=== PATIENT | female | born 1950 | race Caucasian/White ===

== ENCOUNTER 2020-02-23 08:08 | Emergency (ER) | payer MEDICARE, BC ==
[2020-02-23] MEDS ORDERED: IPRATROPIUM/ALBUTEROL 3 ML VIAL NEB ONE ×2 (08:31→09:35)
--- NOTE | 2020-02-23 08:37 | ED.PDOC ---
History of Present Illness - General Time Seen by Provider: 02/23/20 08:15 Source: patient - History of Present Illness Initial Comments: 69 yo female with PMH of HTN, CHF, CKD, hx of CVA who presents with cc of not feeling well. Pt is poor historian. States not feeling well for several days, worsened yesterday. Complains of numerous symptoms but mostly of chest heaviness and dyspnea. States chest heaviness in center of chest, no radiation, worsening for several days, waxing & waning, currently 7/10 severity, worse with activity, better at rest, no meds taken for relief. Dyspnea is constant, moderate, slightly worse than baseline. Also reports some intermittent cough productive at times for phlegm. States fever with Tmax 100 F last night. Reports additionally: body aches, sore throat, leg swelling, and slight R sided facial droop. Reports hx of 2 strokes in the past - has had R sided facial droop with prior strokes. Reports went to sleep w/o any stroke-like sx's last night at 9 pm and woke up at 1 am with new onset sx's. Also reporting some slight numbness on the Right side compared to the left which is new. Denies any abd pain, n/v/d, urinary sx's. Just moved here from [place]. PCP is Dr. Khan but has only had tele-visits with him. Allergies/Adverse Reactions: Allergies Sulfa Antibiotics Allergy (Verified 02/23/20 08:47) Torsemide Allergy (Verified 02/23/20 09:08) Home Medications: Ambulatory Orders Albuterol Sulfate Nebs [Proventil Nebs] 2.5 mg INH Q4H PRN 02/23/20 Alogliptin Benzoate [Alogliptin] 12.5 mg PO DAILY 02/23/20 Amoxicillin 500 mg PO BID 10 Days #20 cap 02/23/20 Aspirin [Aspirin Childrens] 81 mg PO DAILY 02/23/20 Atorvastatin Calcium [Lipitor] 10 mg PO BEDTIME 02/23/20 Bupropion HCl [Wellbutrin Xl] 150 mg PO DAILY 02/23/20 Calcium Carbonate (Antacid) [Calcium Carbonate] 500 mg PO BID 02/23/20 Carboxymethylcellulose 0.5% [Refresh Plus] 0.4 ml BOTH_EYES QID 02/23/20 Carvedilol 6.25 mg PO BID 02/23/20 Cetirizine HCl [ZyrTEC] 10 mg PO DAILY 02/23/20 Ergocalciferol 50,000 unit PO WKLY 02/23/20 Fluconazole 200 mg PO DAILY 02/23/20 Flunisolide (Nasal) [Flunisolide] 0.025 % NA DAILY PRN 02/23/20 Furosemide 60 mg PO DAILY 02/23/20 Guaifenesin-Codeine [Codeine/Guaifenesin 100-10 mg/5Ml] 1 isela PO Q6H PRN 02/23/20 Ipratropium [place] Hfa [Atrovent Hfa] 17 mcg IN Q6H PRN 02/23/20 Losartan Potassium 75 mg PO DAILY 02/23/20 Mometasone Furoate-Formoterol [Dulera 100-5 Mcg/Act] 2 aer IN BID 02/23/20 Montelukast [Singulair] 10 mg PO DAILY 02/23/20 Potassium Chloride [K-Tab] 10 meq PO DAILY 02/23/20 Pramipexole Dihydrochloride [Mirapex] 0.5 mg PO BID 02/23/20 Prednisone 60 mg PO DAILY 5 Days #15 tab 02/23/20 raNITIdine HCL [Zantac] 150 mg PO BID 02/23/20 Review of Systems - Review of Systems Review of Systems: 02/23/20 08:37 as per HPI All other Systems: Reviewed and Negative Family Medical History - Family History Mother Family History: Unknown Living Status: Physical Exam - Physical Exam General Appearance: Alert, No apparent distress Eyes, Ears, Nose, Throat Exam: PERRL/EOMI, normal ENT inspection, pharynx normal Neck: non-tender, full range of motion, supple, normal inspection Respiratory: no accessory muscle use, wheezing - expiratory wheezing throughout with diminished breath sounds throughout, no rales or rhonchi noted Cardiovascular/Chest: normal peripheral pulses, regular rate, rhythm, no murmur Gastrointestinal/Abdominal: non tender, soft, no organomegaly Extremity: normal range of motion, non-tender, no calf tenderness, normal capillary refill, pedal edema - trace BL LE edema Neurologic: alert, normal mood/affect, oriented x 3, 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 No dysarthria noted Skin Exam: normal color, warm/dry Progress - Progress Progress: 02/23/20 08:39 Dyspnea, chest heaviness, stroke-like sx's -consider: COPD exacerbation, CHF, ACS, CVA, PNA, flu, strep, COVID, UTI, other -obtain: cardiac work-up, CT head, labs, UA, flu, strep -place PIV, Duonebs, consider IV steroids if no evidence of pulmonary edema -For stroke-like symptoms, initial NIH score of 4 (facial asymmetry +1, L leg motor drift +2, sensory loss R side +1). As time last known to be well is 9 pm (11 hours ago) and minor symptoms, pt is not a candidate for tPA. Will monitor closely in ED and re-examine. Consider neurology consultation. Pt has not had her morning meds today. Consider aspirin in ED if CT head w/o evidence of hemorrhage. 02/23/20 09:36 -CT head w/o acute processes. Chronic microvascular ischemic changes noted. Suspect ischemic CVA vs TIA -Pt is positive for Strep, negative for flu. Otherwise, labwork pretty unremarkable thus far. Trop <0.017. BNP 17. Will repeat 2-hour trop & EKG. Repeat Duonebs now. Give Solumedrol 125 mg IV for COPD exacerbation. Plan for Abx for Strep upon ED dispo planning. 02/23/20 09:52 -Pt reexamined - improving breath sounds but still pretty diminished throughout with exp wheezes throughout. Pt now speaking in full sentences with ease and reports already feeling much better. Still with slight L facial droop, NIH score unchanged. Reports some epigastric burning discomfort and slight nausea - will give GI cocktail & Zofran 4 mg IV. 02/23/20 10:33 -Phone consultation placed with Neurology (Dr. White) at [facility] AT [facility] in [place], [place]. She agrees pt's symptoms and presentation not c/w acute ischemic CVA most likely. Feels she is likely reliving a lot of her old stroke symptoms in setting of acute illness. Agrees with no tPA or other aggressive acute interventions. Feels no indication at this time for transfer to higher LOC. Agrees with oral ASA therapy in ED and continue baby ASA daily. Treat medically other conditions. Call back if situation changes. 02/23/20 10:57 -Repeat EKG & troponin unchanged. Pt continues to improve. Feeling much better and would like to go home. I recommended admission, but she and her son feel she would do well and be safer at home. Son promises to watch her closely and bring her back if worsening. Pt reports she has her oxygen tank, nebulizer & albuterol at home and will continue these. Will give amoxicillin 500 mg BID x10 days for strep and prednisone 60 mg daily x5 days for COPD. -dc to home in fair condition, return warnings discussed at length 02/23/20 12:59 -ASA 324 mg PO not given in ED. I called the pt's son, Meliton, and advised of the error. I asked him to give her a one-time dose of ASA 324 mg PO right now at home and to resume once daily baby aspirin beginning tomorrow. He verbalized understanding. Misael Clifford MD Billing #[id number] 02/23/20 08:15 Sodium Chloride 0.9% (Flush) [Saline Flush Syringe] 10 ml IV PRN PRN 02/23/20 08:30 EKG STAT 02/23/20 09:00 Pulse Ox Daily 02/23/20 10:03 Urine Culture Stat 02/23/20 10:15 EKG STAT Laboratory Results - last 24 hr 02/23/20 02/23/20 02/23/20 08:36 08:36 08:36 WBC 6.2 RBC 4.64 Hgb 12.6 Hct 38.3 MCV 82.6 MCH 27.2 MCHC 32.9 L RDW 15.0 H Plt Count 199 MPV 9.1 Absolute Neuts (auto) 3.00 Absolute Lymphs (auto) 2.20 Absolute Monos (auto) 0.60 Absolute Eos (auto) 0.40 Absolute Basos (auto) 0.00 Neutrophils % 48.2 Lymphocytes % 35.4 Monocytes % 9.5 H Eosinophils % 6.1 H Basophils % 0.8 Sodium 137 Potassium 3.8 Chloride 100 L Carbon Dioxide 29 Anion Gap 11.8 L BUN 27 H Creatinine 1.31 H BUN/Creatinine Ratio 20.6 H Random Glucose 116 H Serum Osmolality 279.9 Calcium 9.8 Total Bilirubin 0.7 AST 24 ALT 23 Alkaline Phosphatase 70 Troponin I < 0.02 B-Natriuretic Peptide 17.3 Serum Total Protein 7.4 Albumin 3.8 Globulin 3.6 H Albumin/Globulin Ratio 1.1 Urine Color Urine Appearance Urine pH Ur Specific [place] Urine Protein Urine Glucose (UA) Urine Ketones Urine Blood Urine Nitrite Urine Bilirubin Urine Urobilinogen Ur Leukocyte Esterase Urine RBC Urine WBC Ur Epithelial Cells Urine Bacteria Group A Strep Rapid 02/23/20 02/23/20 02/23/20 09:10 10:03 10:03 WBC RBC Hgb Hct MCV MCH MCHC RDW Plt Count MPV Absolute Neuts (auto) Absolute Lymphs (auto) Absolute Monos (auto) Absolute Eos (auto) Absolute Basos (auto) Neutrophils % Lymphocytes % Monocytes % Eosinophils % Basophils % Sodium Potassium Chloride Carbon Dioxide Anion Gap BUN Creatinine BUN/Creatinine Ratio Random Glucose Serum Osmolality Calcium Total Bilirubin AST ALT Alkaline Phosphatase Troponin I < 0.02 B-Natriuretic Peptide Serum Total Protein Albumin Globulin Albumin/Globulin Ratio Urine Color Yellow Urine Appearance Clear Urine pH 7.0 Ur Specific [place] 1.015 Urine Protein Negative Urine Glucose (UA) Negative Urine Ketones Negative Urine Blood Small H Urine Nitrite Negative Urine Bilirubin Negative Urine Urobilinogen 0.2 Ur Leukocyte Esterase Small H Urine RBC 0-1 Urine WBC 3-5 H Ur Epithelial Cells 3-5 Urine Bacteria Rare Group A Strep Rapid Positive - EKG/XRAY/CT EKG: Sinus - NSR, HR 75, no ST elev's or q waves noted, axis normal, RI interval prolonged (234 msecs) but all other intervals wnl, no prior EKG for comparison XRAY: chest - no acute processes per my read Departure - Departure Clinical Impression: Strep pharyngitis, COPD with acute exacerbation Time of Disposition: 10:53 Disposition: Discharge to Home or Self Care Condition: Fair Departure Forms: ED Discharge - Pt. Copy, Patient Portal Self Enrollment Instructions: Sore Throat, Adult (DC), Exacerbation of COPD (DC) Diet: resume usual diet Activity: increase activity as tolerated Referrals: Darrian Khan MD [Primary Care Provider] - 1-2 Weeks Prescriptions: Amoxicillin 500 mg PO BID 10 Days #20 cap Prednisone 60 mg PO DAILY 5 Days #15 tab Home Medications: Ambulatory Orders Albuterol Sulfate Nebs [Proventil Nebs] 2.5 mg INH Q4H PRN 05/09/20 Alogliptin Benzoate [Alogliptin] 12.5 mg PO DAILY 02/23/20 Amoxicillin 500 mg PO BID 10 Days #20 cap 02/23/20 Aspirin [Aspirin Childrens] 81 mg PO DAILY 02/23/20 Atorvastatin Calcium [Lipitor] 10 mg PO BEDTIME 02/23/20 Bupropion HCl [Wellbutrin Xl] 150 mg PO DAILY 02/23/20 Calcium Carbonate (Antacid) [Calcium Carbonate] 500 mg PO BID 02/23/20 Carboxymethylcellulose 0.5% [Refresh Plus] 0.4 ml BOTH_EYES QID 02/23/20 Carvedilol 6.25 mg PO BID 02/23/20 Cetirizine HCl [ZyrTEC] 10 mg PO DAILY 02/23/20 Ergocalciferol 50,000 unit PO WKLY 02/23/20 Fluconazole 200 mg PO DAILY 02/23/20 Flunisolide (Nasal) [Flunisolide] 0.025 % NA DAILY PRN 02/23/20 Furosemide 60 mg PO DAILY 02/23/20 Guaifenesin-Codeine [Codeine/Guaifenesin 100-10 mg/5Ml] 1 isela PO Q6H PRN 02/23/20 Ipratropium [place] Hfa [Atrovent Hfa] 17 mcg IN Q6H PRN 02/23/20 Losartan Potassium 75 mg PO DAILY 02/23/20 Mometasone Furoate-Formoterol [Dulera 100-5 Mcg/Act] 2 aer IN BID 02/23/20 Montelukast [Singulair] 10 mg PO DAILY 02/23/20 Potassium Chloride [K-Tab] 10 meq PO DAILY 02/23/20 Pramipexole Dihydrochloride [Mirapex] 0.5 mg PO BID 02/23/20 Prednisone 60 mg PO DAILY 5 Days #15 tab 02/23/20 raNITIdine HCL [Zantac] 150 mg PO BID 02/23/20 Additional Instructions: Take the antibiotics and steroids as directed and finish the full course. Continue your home nebulized albuterol treatments every 4 hours for the next 24 hours and then every 4 hours as needed after that. Return if symptoms worsen or other concerning symptoms develop. Follow up with your primary care doctor in 1-2 weeks or sooner as needed.
--- NOTE | 2020-02-23 09:34 | CT ---
Study: CT of the Head. Indication: L facial droop, R-sided numbness Technique: Axial CT images of the head were acquired without intravenous contrast. This exam was performed according to our departmental dose-optimization program, which includes automated exposure control, adjustment of the mA and/or kV according to patient size and/or use of iterative reconstruction technique. Comparison: None. Findings: No acute ischemia, acute hemorrhage, mass, mass effect, midline shift, or extra-axial fluid collection identified by CT. Ventricles are normal in configuration without hydrocephalus. Patchy hypoattenuation of the periventricular and subcortical white matter noted. This is nonspecific but most consistent with chronic microvascular ischemic change. Global parenchymal volume loss and intracranial atherosclerosis noted as well. Paranasal sinuses are adequately aerated. Mastoid air cells are adequately aerated. Osseous structures and soft tissues are unremarkable. Impression: No acute intracranial abnormality by CT. If persistent concern for acute ischemia, correlation with MRI recommended. Senescent changes. Electronically signed by: Aniceto Michelle MD 02/23/2020 9:32 AM CDT
--- NOTE | 2020-02-23 09:34 | RAD ---
Study: Single Frontal Radiograph of the Chest. Indication:weakness Comparison: None. Impression: Heart size upper limits of normal with mild interstitial edema. No pleural effusion or pneumothorax. No acute osseous abnormality. Electronically signed by: Aniceto Michelle MD 02/23/2020 9:33 AM CDT
[2020-02-23] MEDS ORDERED: methylPREDNISolone SODIUM SUC 125 MG/2 ML VIAL IV ONE (09:35)
[2020-02-23] MEDS: SODIUM CHLORIDE 0.9% (FLUSH) 10 ML SYG IV PRN ×2 (09:49→10:16)
[2020-02-23] MEDS ORDERED: ALUM & MAG HYDROX-SIMETHICONE 30 ML, LIDOCAINE VISCOUS 2% 15 ML PO ONE ×2 (09:51)
[2020-02-23] MEDS ORDERED: ONDANSETRON INJ 4 MG/2 ML VIAL IV ONE (09:51)
[2020-02-23] MEDS ORDERED: LIDOCAINE HCL 2% (MOUTH-THROAT) 15 ML UD ONE (10:16)
[2020-02-23] MEDS ORDERED: ALUM & MAG HYDROX-SIMETHICONE 30 ML UD ONE (10:16)
[2020-02-23] MEDS ORDERED: AMOXICILLIN 500 MG CAP PO ONE (10:53)
[2020-02-23 11:31] VITALS: BP 130/67; TEMP 97.7; O2SAT 95
== END 2020-02-23 11:20 | disposition home or self-care (01) ==
LOC: ER 08:08
DX: J44.1 Chronic obstructive pulmonary disease with (acute) exacerbation (principal); J02.0 Streptococcal pharyngitis; I13.0 Hypertensive heart and chronic kidney disease with heart failure and stage 1 through stage 4 chronic kidney disease, or unspecified chronic kidney disease; N18.9 Chronic kidney disease, unspecified; I50.9 Heart failure, unspecified; R07.89 Other chest pain; Z86.73 Personal history of transient ischemic attack (TIA), and cerebral infarction without residual deficits; Z79.899 Other long term (current) drug therapy; Z79.82 Long term (current) use of aspirin; Z79.52 Long term (current) use of systemic steroids
CPT/HCPCS: 36415; 70450; 71045; 80053; 81001; 83880; 84484; 85025; 87086; 87502; 87880; 93005; 94640; 94760; J2405; J2930; J7620

== ENCOUNTER → 2020-03-07 | Outpatient (CLI) | payer MEDICARE, BC | LOC: GMAM 11:22 | PROVIDERS: ATTEND Family Medicine | DX: R00.2 Palpitations (principal); R06.02 Shortness of breath ==

== ENCOUNTER → 2020-06-19 | Outpatient (CLI) | payer MEDICARE, BC | LOC: GMAM 10:29 | PROVIDERS: ATTEND Family Medicine | DX: J30.9 Allergic rhinitis, unspecified (principal) ==

== ENCOUNTER → 2020-11-21 | Outpatient (CLI) | payer MEDICARE, BC | LOC: GMAM 13:11 | PROVIDERS: ATTEND Family Medicine | DX: L03.90 Cellulitis, unspecified (principal) ==

== ENCOUNTER → 2020-11-28 | Outpatient (CLI) | payer MEDICARE, BC | LOC: GMAM 12:56 | PROVIDERS: ATTEND Family Medicine | DX: L03.90 Cellulitis, unspecified (principal) ==

== ENCOUNTER → 2020-12-09 | Outpatient (CLI) | payer MEDICARE, BC ==
--- NOTE | 2020-12-09 14:35 | US ---
EXAM DESCRIPTION: Venous,Lower Extremity LT: ULTRASOUND. CLINICAL HISTORY: EDEMA. LEFT lower extremity. COMPARISON: None Available. TECHNIQUE: Aponte-scale and doppler sonographic evaluation of the deep venous system of the left lower extremity. FINDINGS: Doppler evaluation shows normal color flow and normal phasicity and augmentation of the left common femoral vein, left femoral vein, popliteal vein, left greater saphenous vein, junction with the CFV. Also normal color flow and normal phasicity and augmentation of the left peroneal, and posterior tibial vein. The left lower extremity deep veins were completely compressible; normal occlusion with transducer pressure. Aponte-scale survey showed no echogenic thrombus within these veins. IMPRESSION: 1. Duplex ultrasound evaluation of the left lower extremity deep venous system showing no evidence of thrombosis. 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
== END ==
LOC: US 10:01
PROVIDERS: ATTEND Family Medicine
DX: R60.9 Edema, unspecified (principal)